=== PATIENT | male | born 1990 | race Asian ===

== ENCOUNTER 2016-07-26 23:30 | Emergency (ER) | payer OTHER ==
[2016-07-27] MEDS ORDERED: NS 0.9% 1000 ML* 2,000 ML IV ONE
[2016-07-27] MEDS ORDERED: Aspirin Low Dose CHEW TAB* 81 MG PO ONE (00:16)
[2016-07-27 00:42] LABS: Hematocrit 45 % (42-52); Hemoglobin 15.2 g/dl (14.0-18.0); Mean Corpuscular HGB Conc 34 g/dl (31-36); Mean Corpuscular Hemoglobin 30 pg (27-31); Mean Corpuscular Volume 90 fL (80-94); Mean Platelet Volume 8 um3 (7.4-10.4); Red Blood Count 4.99 10^6/ul (4.0-5.4); Red Cell Distribution Width 14 % (10.5-15); White Blood Count 9.8 10^3/ul (3.5-10.8)
[2016-07-27 00:53] LABS: ALT 18 U/L (7-52); Albumin 4.7 g/dL (3.2-5.2); Alkaline Phosphatase 82 U/L (34-104); BUN/Creatinine Ratio 16.1 (8-20); Blood Urea Nitrogen 18 mg/dL (6-24); C Reactive Protein < 1.00 mg/L (< 5.00); CO2 Carbon Dioxide 19 mmol/L (22-32); Calcium 10.1 mg/dL (8.6-10.3); Chloride 102 mmol/L (101-111); Creatine Kinase 147 U/L (10-223); EGFR African American 103.6 (>60); EGFR Non-African American 80.5 (>60); Globulin 3.3 g/dL (2-4); Glucose 116 mg/dL (70-100); Lipase 23 U/L (11.0-82.0); Magnesium 1.9 mg/dL (1.9-2.7); Sodium 137 mmol/L (133-145)
[2016-07-27 00:54] LABS: Troponin I 0.01 ng/mL (<0.04)
[2016-07-27 01:04] LABS: TSH (Thyroid Stimulating Horm) 5.06 mcIU/mL (0.34-5.60)
[2016-07-27 01:49] LABS: AST 18 U/L (13-39); Anion Gap 16 mmol/L (2-11); Potassium 2.9 mmol/L (3.5-5.0)
--- NOTE | 2016-07-27 01:49 | ED ---
Néstor Ortiz Claudia, scribed for Vlad Maria MD on 07/27/16 at 0000 . Shortness of Breath - HPI Summary HPI Summary: 26 year old male presents to the ED with SOB. Pt notes sudden onset about 11pm this evening. Pt notes he was just doing about 1 hour of push-ups and sit-ups in his home when he became SOB and began experiencing numbness to his hands and feet. Pt states that he felt near "syncope". Pt notes no aggravating or alleviating Sx and also states that he has never had Sx like this before in the past. 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 - History of Current Complaint Chief Complaint: EDShortnessOfBreath Time Seen by Provider: 07/26/16 23:52 Onset/Duration: Sudden Onset - 11pm tonight, Still Present Timing: Constant Dyspnea At: Rest - Allergy/Home Medications Allergies/Adverse Reactions: Allergies Allergy/AdvReac Type Severity Reaction Status Date / Time No Known Allergies Allergy Verified 07/27/16 00:25 PMH/Surg Hx/FS Hx/Imm Hx Previously Healthy: Yes Endocrine/Hematology History: Denies: Hx Diabetes Cardiovascular History: Denies: Hx Myocardial Infarction Infectious Disease History: Denies: Traveled Outside the [place] in Last 30 Days - Family History Known Family History: Negative: Cardiac Disease, Hypertension, Diabetes - Social History Occupation: Student Lives: Alone Alcohol Use: None Hx Substance Use: No Substance Use Type: Reports: None Hx Tobacco Use: No Smoking Status (MU): Never Smoked Tobacco Review of Systems Constitutional: Negative Negative: Fever, Chills Eyes: Negative ENT: Negative Cardiovascular: Negative Positive: Shortness Of Breath Gastrointestinal: Negative Genitourinary: Negative Musculoskeletal: Negative Skin: Negative Positive: Numbness - AND TINGLING TO HIS HANDS AND FEET Psychological: Normal Positive: Anxious All Other Systems Reviewed And Are Negative: Yes Physical Exam Triage Information Reviewed: Yes Vital Signs On Initial Exam: Initial Vitals BP 142/68 07/26/16 23:39 Vital Signs Reviewed: Yes Appearance: Positive: Well-Appearing, No Pain Distress Skin: Positive: Warm, Skin Color Reflects Adequate Perfusion, Dry Head/Face: Positive: Normal Head/Face Inspection Eyes: Positive: EOMI, CECILIA ENT: Positive: Normal ENT inspection Neck: Positive: Supple, Nontender Respiratory/Lung Sounds: Positive: Clear to Auscultation, Breath Sounds Present , Other - BREATHING HEAVILY Cardiovascular: Positive: RRR Abdomen Description: Positive: Nontender, Soft Bowel Sounds: Positive: Present Musculoskeletal: Positive: Normal, Strength/ROM Intact Neurological: Positive: Normal, Sensory/Motor Intact, Alert, Oriented to Person Place, Time Psychiatric: Positive: Anxious - MILDLY Diagnostics - Vital Signs Vital Signs Temp Pulse Resp BP Pulse Ox 07/27/16 00:30 66 125/64 100 07/27/16 00:01 70 132/62 100 07/27/16 00:00 68 100 07/26/16 23:50 98.3 F 76 22 142/68 07/26/16 23:41 66 07/26/16 23:39 142/68 - Laboratory Lab Results: Lab Results 07/27/16 07/27/16 07/27/16 Range/Units 00:25 00:25 00:25 WBC 9.8 (3.5-10.8) 10^3/ul RBC 4.99 (4.0-5.4) 10^6/ul Hgb 15.2 (14.0-18.0) g/dl Hct 45 (42-52) % MCV 90 (80-94) fL MCH 30 (27-31) pg MCHC 34 (31-36) g/dl RDW 14 (10.5-15) % Plt Count 185 (150-450) 10^3/ul MPV 8 (7.4-10.4) um3 Neut % (Auto) 69.4 (38-83) % Lymph % (Auto) 23.1 L (25-47) % [place] % (Auto) 6.7 (1-9) % Eos % (Auto) 0.6 (0-6) % Baso % (Auto) 0.2 (0-2) % Absolute Neuts (auto) 6.8 (1.5-7.7) 10^3/ul Absolute Lymphs (auto) 2.3 (1.0-4.8) 10^3/ul Absolute Monos (auto) 0.7 (0-0.8) 10^3/ul Absolute Eos (auto) 0.1 (0-0.6) 10^3/ul Absolute Basos (auto) 0 (0-0.2) 10^3/ul Absolute Nucleated RBC 0 10^3/ul Nucleated RBC % 0 INR (Anticoag Therapy) 0.92 (0.89-1.11) APTT 28.8 (26.0-36.3) seconds D-Dimer, Quantitative < 200 (Less Than 230) ng/mL Sodium 137 (133-145) mmol/L Potassium Pending Chloride 102 (101-111) mmol/L Carbon Dioxide 19 L (22-32) mmol/L Anion Gap Pending BUN 18 (6-24) mg/dL Creatinine 1.12 (0.67-1.17) mg/dL Est GFR ( Amer) 103.6 (>60) Est GFR (Non-Af Amer) 80.5 (>60) BUN/Creatinine Ratio 16.1 (8-20) Glucose 116 H (70-100) mg/dL Lactic Acid (0.5-2.0) mmol/L Calcium 10.1 (8.6-10.3) mg/dL Magnesium 1.9 (1.9-2.7) mg/dL Total Bilirubin 1.20 H (0.2-1.0) mg/dL AST Pending ALT 18 (7-52) U/L Alkaline Phosphatase 82 (34-104) U/L Total Creatine Kinase 147 (10-223) U/L CK-MB (CK-2) 1.5 (0.6-6.3) ng/mL Troponin I 0.01 (<0.04) ng/mL C-Reactive Protein < 1.00 (< 5.00) mg/L B-Natriuretic Peptide ( - 100) pg/mL Total Protein 8.0 (6.4-8.9) g/dL Albumin 4.7 (3.2-5.2) g/dL Globulin 3.3 (2-4) g/dL Albumin/Globulin Ratio 1.4 (1-3) Lipase 23 (11.0-82.0) U/L TSH 5.06 (0.34-5.60) mcIU/mL 07/27/16 07/27/16 Range/Units 00:25 00:25 WBC (3.5-10.8) 10^3/ul RBC (4.0-5.4) 10^6/ul Hgb (14.0-18.0) g/dl Hct (42-52) % MCV (80-94) fL MCH (27-31) pg MCHC (31-36) g/dl RDW (10.5-15) % Plt Count (150-450) 10^3/ul MPV (7.4-10.4) um3 Neut % (Auto) (38-83) % Lymph % (Auto) (25-47) % [place] % (Auto) (1-9) % Eos % (Auto) (0-6) % Baso % (Auto) (0-2) % Absolute Neuts (auto) (1.5-7.7) 10^3/ul Absolute Lymphs (auto) (1.0-4.8) 10^3/ul Absolute Monos (auto) (0-0.8) 10^3/ul Absolute Eos (auto) (0-0.6) 10^3/ul Absolute Basos (auto) (0-0.2) 10^3/ul Absolute Nucleated RBC 10^3/ul Nucleated RBC % INR (Anticoag Therapy) (0.89-1.11) APTT (26.0-36.3) seconds D-Dimer, Quantitative (Less Than 230) ng/mL Sodium (133-145) mmol/L Potassium Chloride (101-111) mmol/L Carbon Dioxide (22-32) mmol/L Anion Gap BUN (6-24) mg/dL Creatinine (0.67-1.17) mg/dL Est GFR ( Amer) (>60) Est GFR (Non-Af Amer) (>60) BUN/Creatinine Ratio (8-20) Glucose (70-100) mg/dL Lactic Acid 5.7 H* (0.5-2.0) mmol/L Calcium (8.6-10.3) mg/dL Magnesium (1.9-2.7) mg/dL Total Bilirubin (0.2-1.0) mg/dL AST ALT (7-52) U/L Alkaline Phosphatase (34-104) U/L Total Creatine Kinase (10-223) U/L CK-MB (CK-2) (0.6-6.3) ng/mL Troponin I (<0.04) ng/mL C-Reactive Protein (< 5.00) mg/L B-Natriuretic Peptide 18 ( - 100) pg/mL Total Protein (6.4-8.9) g/dL Albumin (3.2-5.2) g/dL Globulin (2-4) g/dL Albumin/Globulin Ratio (1-3) Lipase (11.0-82.0) U/L TSH (0.34-5.60) mcIU/mL Result Diagrams: 07/27/16 00:25 07/27/16 00:25 Lab Statement: Any lab studies that have been ordered have been reviewed, and results considered in the medical decision making process. - Radiology CXR Xray Interpretation: No Acute Changes Radiology Interpretation Completed By: ED Physician - EKG 0005 Cardiac Rate: NL EKG Rhythm: Sinus Rhythm - 67 beats/min EKG Interpretation: flipped T waves in III, PVS and probably early repolarization Course/Dx - Course Course Of Treatment: NO CRITICAL CARE TIME Assessment/Plan: DISCUSSED RESULTS WITH PATIENT. HE STATES HE MAY HAVE BEEN DEHYDRATED PRIOR TO HIS WORKOUT. IMMEDIATELY AFTER WORKING OUT, HE FELT HIS HANDS AND FEET FEEL TIGHT AND DIFFICULT TO MOVE. THEN HE FELT THE SAME TIGHTNESS IN HIS CHEST/TRUNK. IMPROVED GREATELY WITH NS IVF. DISCHARGE HOME STABLE. - Diagnoses Provider Diagnoses: Lactic acid acidosis Discharge - Discharge Plan Condition: Stable Disposition: HOME Patient Education Materials: Dehydration (ED) Referrals: Nino Benavidez MD [Primary Care Provider] - Additional Instructions: FOLLOW UP WITH YOUR DOCTOR. DRINK PLENTY OF FLUIDS OVER THE NEXT 1-2 DAYS AND ANY TIME YOU ARE EXERCISING. RETURN TO THE EMERGENCY DEPARTMENT FOR ANY WORSENING OF YOUR CONDITION; CHEST PAIN, SHORTNESS OF BREATH, YOU FEEL ILL OR QUESTIONS OR CONCERNS. The documentation as recorded by the Néstor pina Claudia accurately reflects the service I personally performed and the decisions made by me, Vlad Maria MD.
[2016-07-27 02:14] VITALS: BP 119/68
--- NOTE | 2016-07-27 07:43 | RAD ---
INDICATION: Shortness of breath. COMPARISON: There are no prior studies available for comparison. TECHNIQUE: A portable view of the chest was obtained. FINDINGS: Cardiac and mediastinal contours appear to be within normal limits. The lungs are clear. No pleural effusion is seen. IMPRESSION: NO EVIDENCE FOR ACUTE DISEASE.
== END 2016-07-27 02:14 | disposition home or self-care (01) ==
LOC: ED 23:30
DX: E87.2 Acidosis (principal); R06.02 Shortness of breath; R20.0 Anesthesia of skin
CPT/HCPCS: 36415; 71010; 80053; 82550; 82553; 83605; 83690; 83735; 83880; 84443; 84484; 85025; 85379; 85610; 85730; 86140; 93005; 99282; A9270-GY